=== PATIENT | female | born 1955 | race African-American/Black ===

== ENCOUNTER 2025-02-10 11:35 | Emergency (ER) | payer MEDICARE ==
[~2025-02-10] VITALS: Ht 165.1 cm; Wt 58.2 kg
[2025-02-10 11:37] VITALS: BP 172/91; PULSE 79; RESP 16; TEMP 98; O2SAT 99
[2025-02-10] MEDS ORDERED: LANTUS SUBCUT (13:37)
--- NOTE | 2025-02-10 13:37 | Physician Documentation ---
HPI ~ General Chief Complaint: Medication Request Stated Complaint: DIABETIC COMPLICATIONS Time Seen by MD: 12:45 OK to notify your PCP?: Yes Source: patient Mode of Arrival: POV Exam Limitations: no limitations History of Present Illness HPI Comments 69 year-old female with insulin dependent diabetes here needing refill of her long acting insulin. Last administered her long acting insulin yesterday. She states she is only here for eight days and that her doctor is in [place] at [place]. She states she has her short-acting insulin but needs her long-acting insulin. She generally does 4units to 10units qam of lantus. Medication Reconciliation Allergies: Coded Allergies: No Known Allergies (Unverified , 02/10/25) Scheduled Insulin Glargine,Hum.rec.anlog* (Lantus*), 10 UNITS SUBCUT HS Past Medical History Past Medical History: Diabetes Review of Systems All Other Systems at this time: Reviewed and Negative Physical Exam Physical Exam Vital Signs: Temperature: 98.0, Source: Temporal, Heart Rate: 79, Respiratory Rate: 16, BP: 172/91, Pulse Oximetry: 99, Weight: 58.200 Oxygen Flow Rate: 0 Physical Exam General Appearance: Alert, WD/WN. NAD. HEENT: NCAT, PERRL, EOMI. Neck: Supple, trachea midline. Lungs: Breathing unlabored Extremities: Normal inspection. No edema. Skin: Warm/dry, normal color Neurological: Alert and oriented x4, normal gait. Psychiatric: Affect congruent with mood. Progress Results/Orders Results/Orders Vital Signs 02/10/25 11:37 Temp 98.0 Pulse 79 Resp 16 B/P (MAP) 172/91 Pulse Ox 99 O2 Flow Rate 0 Laboratory Tests Test 02/10/25 11:40 Glucometer 321 H Departure Time of Disposition: 18:43 Disposition: 01 HOME / SELF CARE / HOMELESS Impression: Primary Impression: Insulin dependent diabetes mellitus Condition: Stable Discharge Instructions: Medicine Refill at the Emergency Department Additional Instructions: I SENT SHORT SUPPLY OF LONG ACTING INSULIN TO YOUR PHARMACY F/U WITH YOUR INSTRUCTIONAL SERVICES SPECIALIST FOR FUTURE REFILLS Referrals: NO PRIMARY CARE PROVIDER (PCP) Prescriptions Insulin Glargine,Hum.rec.anlog* (Lantus*) 100 Unit/1 Ml Vial 10 UNITS SUBCUT HS for 30 Days, #5 ML Prov: JAD GASTON 02/10/25 Education Educated: Patient Educated regarding: diagnosis, treatment, need for follow up Signature Scribe Signature: x Attestation: JAD Newton Feb 10, 2025 13:37
== END 2025-02-10 13:40 | disposition home or self-care (01) ==
LOC: ER 11:37
DX: E11.9 Type 2 diabetes mellitus without complications (principal); Z79.4 Long term (current) use of insulin
CPT/HCPCS: 82948; 99282